=== PATIENT | male | born 1995 | race American Indian/Alaskan Native ===

== ENCOUNTER 2019-02-10 21:51 | Emergency (ER) | payer MEDICAID ==
--- NOTE | 2019-02-10 22:18 | EDM.PDOC ---
ED HPI GENERAL MEDICAL PROBLEM - General Chief Complaint: General Stated Complaint: RECTAL PAIN Time Seen by Provider: 02/10/19 22:07 Source of Information: Reports: Patient History Limitations: Reports: No Limitations - History of Present Illness INITIAL COMMENTS - FREE TEXT/NARRATIVE: Patient presents for evaluation of a lump in his left buttock present for several weeks now. This came on spontaneously and has persisted for almost 3 weeks. It was worse in the last couple of days and today while working, he began to feel something draining down his leg. Center of the area had burst open and leaked a clear fluid onto underwear and other clothing. Once it began to leak, his pain actually had improved but was not 0. He's not had any other similar lesions on the body. He also has concerns about some tiny white spots on the shaft of the penis but these are secondary compared to the pain in his left buttock. No fever or chills. No nausea or vomiting. No dysuria. Onset: Gradual Duration: Week(s): (3, worse in the last couple days however.) Location: Reports: Pelvis (Left buttock.) Severity: Mild Improves with: Reports: None Worsens with: Reports: Movement Associated Symptoms: Reports: No Other Symptoms - Related Data Allergies Allergy/AdvReac Type Severity Reaction Status Date / Time No Known Allergies Allergy Verified 02/10/19 22:12 Home Meds: Home Meds NK [No Known Home Meds] 02/10/19 [History] ED ROS GENERAL - Review of Systems Review Of Systems: Comprehensive ROS is negative, except as noted in HPI. ED EXAM, GENERAL - Physical Exam Exam: See Below Exam Limited By: No Limitations General Appearance: Mild Distress (Male) Exam: Other (Shaft of the penis shows numerous pinpoint white papules which are present normal sweat glands.) Rectal (Males) Exam: No: Perirectal Abscess Skin Exam: Other (The left buttock shows an approximately 4 cm diameter, indurated raised slightly reddened area with a central opening leaking serous fluid.) Course - Vital Signs Last Recorded V/S: Last Vital Signs Temp 36.8 C 02/10/19 22:55 Pulse 86 02/10/19 22:55 Resp 16 02/10/19 22:55 BP 147/99 H 02/10/19 22:55 Pulse Ox 95 02/10/19 22:55 - Orders/Labs/Meds Orders: Active Orders 24 hr Category Date Time Status CULTURE WOUND + SMEAR [RM] Stat Lab 02/10/19 23:00 Results Meds: Medications Discontinued Medications Generic Name Dose Route Start Last Admin Trade Name Deisy PRN Reason Stop Dose Admin Trimethoprim/Sulfamethoxazole 1 tab 02/10/19 23:00 02/10/19 23:09 Septra Ds PO 02/10/19 23:01 1 tab ONETIME ONE Administration - Re-Assessments/Exams Free Text/Narrative Re-Assessment/Exam: 02/11/19 01:56 With pressure around the central opening of the area, mostly serous fluid but a tiny amount of exudative material was expressed. The bulk of the lesion feels quite firm. After reviewing options to look at this tonight, I described puncturing the central core with a needle and see what material might come out. He agreed to that. The area was cleansed with iodine and allowed to dry. Following that, a sterile 18-gauge needle was used to penetrate the center portion of the abscess. Perhaps a quarter teaspoon of caseous material was expressed along with additional serous fluid area did minor bleeding. He felt better following a puncture. I recommend using warm water tub soaks for 30 minutes several times a day if he is able. He was given a single tablet of Septra DS in the department. Prescription was sent for 10 days of Septra DS. Culture of the expressed wound material was obtained and sent to lab. He should call after Friday, 16 November, to get culture results. He does not have a primary provider. If he feels worse in any way he should return here. Depending on how this does, he may need to be seen in outpatient surgery clinic. Reasons to return to emergency department reviewed. Departure - Departure Time of Disposition: 23:01 Disposition: Home, Self-Care 01 Condition: Good Clinical Impression: Abscess of buttock, left - Discharge Information *PRESCRIPTION DRUG MONITORING PROGRAM REVIEWED*: Not Applicable *COPY OF PRESCRIPTION DRUG MONITORING REPORT IN PATIENT JON: Not Applicable Instructions: Skin Abscess Referrals: PCP,None [Primary Care Provider] - Forms: ED Department Discharge Additional Instructions: Get in the bathtub at home and soak in very warm water for 30 minutes. If you can do that 2 or 3 times a day, it will help the painful area. Continue antibiotic until they are all gone. Culture results will take 3 or so days before they finalize. Contact the emergency department for culture results after Friday, 15 February. Depending on how you feel over the next week to 10 days, you may need follow-up in the clinic with one of the surgeons. If things are worsening, return to emergency department but if she don't feel like they' re getting smaller, contact your primary care or the local clinic surgery department for an appointment. Sepsis Event Note - Focused Exam Vital Signs: Vital Signs Temp Pulse Resp BP Pulse Ox 02/10/19 22:55 36.8 C 86 16 147/99 H 95 02/10/19 22:07 36.8 C 86 16 147/99 H 95 Date Exam was Performed: 02/11/19 Time Exam was Performed: 01:51 - My Orders Last 24 Hours: My Active Orders 02/10/19 23:00 CULTURE WOUND + SMEAR [RM] Stat - Assessment/Plan Last 24 Hours: My Active Orders 02/10/19 23:00 CULTURE WOUND + SMEAR [RM] Stat
[2019-02-10] MEDS ORDERED: Sulfamethoxazole/Trimethoprim 800-160 MG Tab PO ONE (23:00)
== END 2019-02-10 23:40 | disposition home or self-care (01) ==
LOC: JP.ED 21:51
DX: L02.31 Cutaneous abscess of buttock (principal)
CPT/HCPCS: 87070; 87077; 87186; 87205; 99283; A9270

== ENCOUNTER 2019-04-01 06:03 | Emergency (ER) | payer MEDICAID ==
[2019-04-01] MEDS ORDERED: Sodium Chloride 0.9% 10 ML Syringe FLUSH PRN (06:27)
[2019-04-01] MEDS ORDERED: Ondansetron 4 MG/2 ML SDV IVPUSH ONE (06:29)
[2019-04-01] MEDS ORDERED: Lactated Ringers 1,000 ML IV SCH (06:30)
--- NOTE | 2019-04-01 06:31 | EDM.PDOC ---
<OfficerIsrrael - Last Filed: 04/01/19 06:29> ED HPI GENERAL MEDICAL PROBLEM - General Chief Complaint: Abdominal Pain Stated Complaint: SHARP PAIN IN LOWER CHEST AND ABD Time Seen by Provider: 04/01/19 06:24 Source of Information: Reports: Patient, RN Notes Reviewed History Limitations: Reports: No Limitations - History of Present Illness INITIAL COMMENTS - FREE TEXT/NARRATIVE: 24-year-old gentleman presents emergency department a complaint of nausea vomiting abdominal pain, states he has had this in the past but not quite this severe he does admit to using cannabis no fevers no shortness of breath or chest pain - Related Data Allergies Allergy/AdvReac Type Severity Reaction Status Date / Time No Known Allergies Allergy Verified 02/10/19 22:12 Home Meds: Home Meds NK [No Known Home Meds] 02/10/19 [History] Past Medical History - Past Health History Medical/Surgical History: Denies Medical/Surgical History Social & Family History - Tobacco Use Smoking Status *Q: Current Every Day Smoker - Caffeine Use Caffeine Use: Reports: Soda ED ROS GENERAL - Review of Systems Review Of Systems: See Below Constitutional: Denies: Fever, Chills HEENT: Reports: No Symptoms Respiratory: Reports: No Symptoms Cardiovascular: Reports: No Symptoms GI/Abdominal: Reports: Abdominal Pain, Nausea, Vomiting : Reports: No Symptoms Musculoskeletal: Reports: No Symptoms Neurological: Reports: No Symptoms ED EXAM, GI/ABD - Physical Exam Exam: See Below Exam Limited By: No Limitations General Appearance: Alert, WD/WN, No Apparent Distress Head: Atraumatic, Normocephalic Neck: Normal Inspection, Supple, Non-Tender, Full Range of Motion Respiratory/Chest: No Respiratory Distress, Lungs Clear, Normal Breath Sounds, No Accessory Muscle Use, Chest Non-Tender Cardiovascular: Regular Rate, Rhythm, No Murmur GI/Abdominal Exam: Soft, Tender (Tender epigastric region) Back Exam: Normal Inspection, Full Range of Motion. No: CVA Tenderness (R), CVA Tenderness (L) Course - Vital Signs Last Recorded V/S: Last Vital Signs Temp 96.8 F 04/01/19 08:50 Pulse 53 L 04/01/19 08:50 Resp 16 04/01/19 08:50 BP 146/83 H 04/01/19 08:50 Pulse Ox 100 04/01/19 08:50 - Orders/Labs/Meds Orders: Active Orders 24 hr Category Date Time Status Peripheral IV Care [RC] . DIRECTED Care 04/01/19 06:28 Active Peripheral IV Insertion Adult [OM.PC] Urgent Oth 04/01/19 06:27 Ordered Labs: Laboratory Tests 04/01/19 04/01/19 04/01/19 Range/Units 06:42 06:42 06:42 WBC 15.6 H (4.5-11.0) K/uL RBC 5.30 (4.30-5.90) M/uL Hgb 15.4 H (12.0-15.0) g/dL Hct 46.3 (40.0-54.0) % MCV 87 (80-98) fL MCH 29 (27-31) pg MCHC 33 (32-36) % Plt Count 435 H (150-400) K/uL Neut % (Auto) 73 H (36-66) % Lymph % (Auto) 22 L (24-44) % [place] % (Auto) 5 (2-6) % Eos % (Auto) 0 L (2-4) % Baso % (Auto) 0 (0-1) % Sodium 143 (140-148) mmol/L Potassium 3.7 (3.6-5.2) mmol/L Chloride 106 (100-108) mmol/L Carbon Dioxide 24 (21-32) mmol/L Anion Gap 13.5 (5.0-14.0) mmol/L BUN 11 (7-18) mg/dL Creatinine 0.9 (0.8-1.3) mg/dL Est Cr Clr Drug Dosing 128.74 mL/min Estimated GFR (MDRD) > 60 (>60) Glucose 161 H (74-106) mg/dL Lactic Acid 3.1 H (0.4-2.0) mmol/L Calcium 8.5 (8.5-10.1) mg/dL Total Bilirubin 0.3 (0.2-1.0) mg/dL AST 16 (15-37) U/L ALT 37 (12-78) U/L Alkaline Phosphatase 62 (46-116) U/L Total Protein 7.5 (6.4-8.2) g/dL Albumin 4.3 (3.4-5.0) g/dL Globulin 3.2 (2.3-3.5) g/dL Albumin/Globulin Ratio 1.3 (1.2-2.2) Lipase 102 (73-393) U/L Urine Opiates Screen (NEGATIVE) Ur Oxycodone Screen (NEGATIVE) Urine Methadone Screen (NEGATIVE) Ur Propoxyphene Screen (NEGATIVE) Ur Barbiturates Screen (NEGATIVE) Ur Tricyclics Screen (NEGATIVE) Ur Phencyclidine Scrn (NEGATIVE) Ur Amphetamine Screen (NEGATIVE) U Methamphetamines Scrn (NEGATIVE) Urine MDMA Screen (NEGATIVE) U Benzodiazepines Scrn (NEGATIVE) U Cocaine Metab Screen (NEGATIVE) U Marijuana (THC) Screen (NEGATIVE) 04/01/19 Range/Units 08:55 WBC (4.5-11.0) K/uL RBC (4.30-5.90) M/uL Hgb (12.0-15.0) g/dL Hct (40.0-54.0) % MCV (80-98) fL MCH (27-31) pg MCHC (32-36) % Plt Count (150-400) K/uL Neut % (Auto) (36-66) % Lymph % (Auto) (24-44) % [place] % (Auto) (2-6) % Eos % (Auto) (2-4) % Baso % (Auto) (0-1) % Sodium (140-148) mmol/L Potassium (3.6-5.2) mmol/L Chloride (100-108) mmol/L Carbon Dioxide (21-32) mmol/L Anion Gap (5.0-14.0) mmol/L BUN (7-18) mg/dL Creatinine (0.8-1.3) mg/dL Est Cr Clr Drug Dosing mL/min Estimated GFR (MDRD) (>60) Glucose (74-106) mg/dL Lactic Acid (0.4-2.0) mmol/L Calcium (8.5-10.1) mg/dL Total Bilirubin (0.2-1.0) mg/dL AST (15-37) U/L ALT (12-78) U/L Alkaline Phosphatase (46-116) U/L Total Protein (6.4-8.2) g/dL Albumin (3.4-5.0) g/dL Globulin (2.3-3.5) g/dL Albumin/Globulin Ratio (1.2-2.2) Lipase (73-393) U/L Urine Opiates Screen Negative (NEGATIVE) Ur Oxycodone Screen Negative (NEGATIVE) Urine Methadone Screen Negative (NEGATIVE) Ur Propoxyphene Screen Negative (NEGATIVE) Ur Barbiturates Screen Negative (NEGATIVE) Ur Tricyclics Screen Negative (NEGATIVE) Ur Phencyclidine Scrn Negative (NEGATIVE) Ur Amphetamine Screen Negative (NEGATIVE) U Methamphetamines Scrn Negative (NEGATIVE) Urine MDMA Screen Negative (NEGATIVE) U Benzodiazepines Scrn Presumptive positive H (NEGATIVE) U Cocaine Metab Screen Negative (NEGATIVE) U Marijuana (THC) Screen Presumptive positive H (NEGATIVE) Meds: Medications Discontinued Medications Generic Name Dose Route Start Last Admin Trade Name Freq PRN Reason Stop Dose Admin Haloperidol Lactate 5 mg 04/01/19 07:31 04/01/19 07:41 Haldol IVPUSH 04/01/19 07:32 5 mg ONETIME ONE Administration Lactated Ringer's 1,000 mls @ 125 mls/hr 04/01/19 06:30 04/01/19 06:42 Ringers, Lactated IV 125 mls/hr ASDIRECTED DELLA Administration Sodium Chloride 1,000 mls @ 1,000 mls/hr 04/01/19 07:45 04/01/19 08:35 Normal Saline IV 1,000 mls/hr ASDIRECTED DELLA Administration Lorazepam 1 mg 04/01/19 06:52 04/01/19 06:59 Ativan IVPUSH 04/01/19 06:53 1 mg ONETIME ONE Administration Lorazepam 1 mg 04/01/19 07:31 04/01/19 07:44 Ativan IVPUSH 04/01/19 07:32 1 mg ONETIME ONE Administration Ondansetron HCl 4 mg 04/01/19 06:29 04/01/19 06:43 Zofran IVPUSH 04/01/19 06:30 4 mg ONETIME ONE Administration Sodium Chloride 10 ml 04/01/19 06:27 Saline Flush FLUSH ASDIRECTED PRN Keep Vein Open Departure - Departure Disposition: Home, Self-Care 01 Clinical Impression: Cannabis hyperemesis syndrome concurrent with and due to cannabis abuse - Discharge Information Instructions: Cannabinoid Hyperemesis Syndrome Referrals: PCP,None [Primary Care Provider] - Forms: ED Department Discharge Care Plan Goals: Try to decrease marijuana use, stopping completely would be your best option. If symptoms recur try a hot shower, and return to the clinic or ER if symptoms are persistent, you develop a fever or increased abdominal pain. Sepsis Event Note - Evaluation Sepsis Screening Result: No Definite Risk - Focused Exam Vital Signs: Vital Signs Temp Pulse Resp BP Pulse Ox 04/01/19 08:50 96.8 F 53 L 16 146/83 H 100 04/01/19 06:23 95.4 F 67 16 153/97 H 97 Date Exam was Performed: 04/01/19 Time Exam was Performed: 06:29 <Monico Bloom - Last Filed: 04/01/19 10:45> ED HPI GENERAL MEDICAL PROBLEM Upper Epigastric Pain Score (Numeric/FACES): 10 Course - Re-Assessments/Exams Free Text/Narrative Re-Assessment/Exam: 04/01/19 07:46 Patient initially evaluated and treated with by Dr. Justicer for persistent emesis. IV Ativan temporarily helped but he is actively retching again. He admits this is been a recurring problem and last occurred a week ago, however it is "never been this bad". He has no history of abdominal surgeries. Labs returned reassuring, white count was mildly elevated but electrolytes amylase and lipase were normal. An additional milligram of Ativan was given along with 5 mg of IV Haldol, and normal saline was bolused. Patient admits to frequent use of marijuana. 04/01/19 08:33 Shortly after the second dose of Ativan and Haldol the patient fell asleep and slept soundly for an hour. 04/01/19 09:06 Patient did not receive developed any nausea or vomiting, stayed fairly sedated with the medications. Was able to go to the bathroom and provide a urine which was positive for marijuana. He will be discharged to the care of his father, strongly encouraged to stop marijuana usage and try a hot shower if symptoms recur. Departure - Departure Time of Disposition: 09:31 Sepsis Event Note - Focused Exam Date Exam was Performed: 04/01/19 Time Exam was Performed: 10:45
[2019-04-01] MEDS ORDERED: LORazepam 2 MG/ML SDV IVPUSH ONE ×2 (06:52→07:31)
[2019-04-01] MEDS ORDERED: Haloperidol Lactate 5 MG/ML SDV IVPUSH ONE (07:31)
[2019-04-01] MEDS ORDERED: Sodium Chloride 0.9% 1,000 ML IV SCH (07:45)
== END 2019-04-01 09:31 | disposition home or self-care (01) ==
LOC: JP.ED 06:03
DX: F12.188 Cannabis abuse with other cannabis-induced disorder (principal); F17.200 Nicotine dependence, unspecified, uncomplicated
CPT/HCPCS: 36415; 80053; 80305; 83605; 83690; 85025; 96361; 96374; 96375; 96376; 99284; J1630; J2060; J2405; J7030; J7120

== ENCOUNTER 2019-10-14 04:35 | Emergency (ER) | payer MEDICAID ==
[2019-10-14] MEDS ORDERED: Alum Hydrox/Mag Hydrox/Simeth 15 ML, Lidocaine 2% 15 ML PO ONE ×2 (05:08)
--- NOTE | 2019-10-14 05:11 | EDM.PDOC ---
ED HPI GENERAL MEDICAL PROBLEM - General Chief Complaint: Gastrointestinal Problem Stated Complaint: ABD PAIN Time Seen by Provider: 10/14/19 05:01 Source of Information: Reports: Patient, Old Records, RN Notes Reviewed History Limitations: Reports: No Limitations - History of Present Illness INITIAL COMMENTS - FREE TEXT/NARRATIVE: 24-year-old gentleman presents emergency department today with complaint of abdominal pain, he states the pain started last night about 11:00 has progressed it is mainly in the epigastric region he has had nausea and vomiting. Deficit have a history of hyperemesis cannabis syndrome but he admits to eating a large meal last night states he has not used cannabis for 24 hours - Related Data Allergies Allergy/AdvReac Type Severity Reaction Status Date / Time No Known Allergies Allergy Verified 10/14/19 04:52 Home Meds: Home Meds NK [No Known Home Meds] 02/10/19 [History] Past Medical History Psychiatric History: Reports: Addiction, Depression - Past Surgical History Head Surgeries/Procedures: Reports: None Dermatological Surgical History: Reports: None Social & Family History - Family History Family Medical History: Noncontributory - Tobacco Use Smoking Status *Q: Never Smoker Second Hand Smoke Exposure: No - Caffeine Use Caffeine Use: Reports: Soda - Recreational Drug Use Recreational Drug Use: Yes Drug Use in Last 12 Months: Yes Recreational Drug Type: Reports: Marijuana/Hashish Recreational Drug Use Frequency: Daily ED ROS GENERAL - Review of Systems Review Of Systems: See Below Constitutional: Reports: No Symptoms HEENT: Reports: No Symptoms Respiratory: Reports: No Symptoms Cardiovascular: Reports: No Symptoms GI/Abdominal: Reports: Abdominal Pain, Flatus, Nausea, Vomiting. Denies: Constipation, Diarrhea : Reports: No Symptoms ED EXAM, GI/ABD - Physical Exam Exam: See Below Exam Limited By: No Limitations General Appearance: Alert, WD/WN, No Apparent Distress Respiratory/Chest: No Respiratory Distress, Lungs Clear, Normal Breath Sounds, No Accessory Muscle Use, Chest Non-Tender Cardiovascular: Regular Rate, Rhythm, No Murmur GI/Abdominal Exam: Normal Bowel Sounds, Soft, No Organomegaly, No Distention, No Mass, Tender (Epigastric region) Course - Vital Signs Last Recorded V/S: Last Vital Signs Temp 96 F L 10/14/19 04:49 Pulse 50 L 10/14/19 04:49 Resp 16 10/14/19 04:49 BP 178/101 H 10/14/19 04:49 Pulse Ox 96 10/14/19 04:49 - Orders/Labs/Meds Orders: Active Orders 24 hr Category Date Time Status ED GI Medications Reflex [OM.PC] Click to Edit Oth 10/14/19 05:06 Ordered Labs: Laboratory Tests 10/14/19 10/14/19 10/14/19 Range/Units 05:26 05:26 05:30 WBC 14.8 H (4.5-11.0) K/uL RBC 5.24 (4.30-5.90) M/uL Hgb 15.5 H (12.0-15.0) g/dL Hct 46.0 (40.0-54.0) % MCV 88 (80-98) fL MCH 30 (27-31) pg MCHC 34 (32-36) % Plt Count 404 H (150-400) K/uL Neut % (Auto) 83 H (36-66) % Lymph % (Auto) 12 L (24-44) % [place] % (Auto) 4 (2-6) % Eos % (Auto) 1 L (2-4) % Baso % (Auto) 0 (0-1) % Sodium (140-148) mmol/L Potassium (3.6-5.2) mmol/L Chloride (100-108) mmol/L Carbon Dioxide (21-32) mmol/L Anion Gap (5.0-14.0) mmol/L BUN (7-18) mg/dL Creatinine (0.8-1.3) mg/dL Est Cr Clr Drug Dosing mL/min Estimated GFR (MDRD) (>60) Glucose (74-106) mg/dL Lactic Acid (0.4-2.0) mmol/L Calcium (8.5-10.1) mg/dL Total Bilirubin (0.2-1.0) mg/dL AST (15-37) U/L ALT (12-78) U/L Alkaline Phosphatase (46-116) U/L Total Protein (6.4-8.2) g/dL Albumin (3.4-5.0) g/dL Globulin (2.3-3.5) g/dL Albumin/Globulin Ratio (1.2-2.2) Urine Color Yellow (YELLOW) Urine Appearance Slightly cloudy A (CLEAR) Urine pH 6.0 (5.0-8.0) Ur Specific [place] >= 1.030 (1.008-1.030) Urine Protein Negative (NEGATIVE) mg/dL Urine Glucose (UA) Negative (NEGATIVE) mg/dL Urine Ketones Negative (NEGATIVE) mg/dL Urine Occult Blood Trace-intact H (NEGATIVE) Urine Nitrite Negative (NEGATIVE) Urine Bilirubin Negative (NEGATIVE) Urine Urobilinogen 1.0 (0.2-1.0) EU/dL Ur Leukocyte Esterase Negative (NEGATIVE) Urine RBC 0-5 (0-5) Urine WBC 0-5 (0-5) Ur Epithelial Cells Rare Amorphous Sediment Not seen Urine Bacteria Not seen Urine Mucus Moderate Urine Other Urine Opiates Screen Negative (NEGATIVE) Ur Oxycodone Screen Negative (NEGATIVE) Urine Methadone Screen Negative (NEGATIVE) Ur Propoxyphene Screen Negative (NEGATIVE) Ur Barbiturates Screen Negative (NEGATIVE) Ur Tricyclics Screen Negative (NEGATIVE) Ur Phencyclidine Scrn Negative (NEGATIVE) Ur Amphetamine Screen Negative (NEGATIVE) U Methamphetamines Scrn Negative (NEGATIVE) Urine MDMA Screen Negative (NEGATIVE) U Benzodiazepines Scrn Negative (NEGATIVE) U Cocaine Metab Screen Negative (NEGATIVE) U Marijuana (THC) Screen Presumptive positive H (NEGATIVE) 10/14/19 10/14/19 Range/Units 05:30 05:30 WBC (4.5-11.0) K/uL RBC (4.30-5.90) M/uL Hgb (12.0-15.0) g/dL Hct (40.0-54.0) % MCV (80-98) fL MCH (27-31) pg MCHC (32-36) % Plt Count (150-400) K/uL Neut % (Auto) (36-66) % Lymph % (Auto) (24-44) % [place] % (Auto) (2-6) % Eos % (Auto) (2-4) % Baso % (Auto) (0-1) % Sodium 141 (140-148) mmol/L Potassium 4.5 (3.6-5.2) mmol/L Chloride 105 (100-108) mmol/L Carbon Dioxide 31 (21-32) mmol/L Anion Gap 4.6 L (5.0-14.0) mmol/L BUN 8 (7-18) mg/dL Creatinine 0.9 (0.8-1.3) mg/dL Est Cr Clr Drug Dosing 128.74 mL/min Estimated GFR (MDRD) > 60 (>60) Glucose 129 H (74-106) mg/dL Lactic Acid 1.4 (0.4-2.0) mmol/L Calcium 8.9 (8.5-10.1) mg/dL Total Bilirubin 0.4 (0.2-1.0) mg/dL AST 21 (15-37) U/L ALT 29 (12-78) U/L Alkaline Phosphatase 61 (46-116) U/L Total Protein 7.7 (6.4-8.2) g/dL Albumin 4.3 (3.4-5.0) g/dL Globulin 3.4 (2.3-3.5) g/dL Albumin/Globulin Ratio 1.3 (1.2-2.2) Urine Color (YELLOW) Urine Appearance (CLEAR) Urine pH (5.0-8.0) Ur Specific [place] (1.008-1.030) Urine Protein (NEGATIVE) mg/dL Urine Glucose (UA) (NEGATIVE) mg/dL Urine Ketones (NEGATIVE) mg/dL Urine Occult Blood (NEGATIVE) Urine Nitrite (NEGATIVE) Urine Bilirubin (NEGATIVE) Urine Urobilinogen (0.2-1.0) EU/dL Ur Leukocyte Esterase (NEGATIVE) Urine RBC (0-5) Urine WBC (0-5) Ur Epithelial Cells Amorphous Sediment Urine Bacteria Urine Mucus Urine Other Urine Opiates Screen (NEGATIVE) Ur Oxycodone Screen (NEGATIVE) Urine Methadone Screen (NEGATIVE) Ur Propoxyphene Screen (NEGATIVE) Ur Barbiturates Screen (NEGATIVE) Ur Tricyclics Screen (NEGATIVE) Ur Phencyclidine Scrn (NEGATIVE) Ur Amphetamine Screen (NEGATIVE) U Methamphetamines Scrn (NEGATIVE) Urine MDMA Screen (NEGATIVE) U Benzodiazepines Scrn (NEGATIVE) U Cocaine Metab Screen (NEGATIVE) U Marijuana (THC) Screen (NEGATIVE) Meds: Medications Discontinued Medications Generic Name Dose Route Start Last Admin Trade Name Freq PRN Reason Stop Dose Admin Al Hydroxide/Mg Hydroxide 15 0 ml 10/14/19 05:08 10/14/19 05:17 ml/ Lidocaine HCl 15 ml PO 10/14/19 05:09 15 ml ONETIME ONE Administration Departure - Departure Time of Disposition: 06:12 Disposition: Home, Self-Care 01 Condition: Fair Clinical Impression: GERD (gastroesophageal reflux disease) Qualifiers: Esophagitis presence: esophagitis presence not specified Qualified Code(s): K21.9 - Gastro-esophageal reflux disease without esophagitis - Discharge Information Referrals: PCP,None [Primary Care Provider] - Forms: ED Department Discharge Additional Instructions: Try Zantac which is [id number] as needed please followup with your primary care provider in 3-5 days if not better, please call return to the emergency department with worsening of symptoms. Sepsis Event Note (ED) - Evaluation Sepsis Screening Result: No Definite Risk - Focused Exam Vital Signs: Vital Signs Temp Pulse Resp BP Pulse Ox 10/14/19 04:49 96 F L 50 L 16 178/101 H 96 10/14/19 04:48 96 F L 50 L 16 178/101 H 96 - My Orders Last 24 Hours: My Active Orders 10/14/19 05:06 ED GI Medications Reflex [OM.PC] Click to Edit - Assessment/Plan Last 24 Hours: My Active Orders 10/14/19 05:06 ED GI Medications Reflex [OM.PC] Click to Edit Plan: Assessment Acuity = acute Site and laterality = GERD Etiology = unknown Manifestations = none Location of injury = Home Lab values = none Plan Good improvement with GI cocktail, follow-up primary care 3 to 5 days if not better This note was dictated using [employer] voice recognition software please call with any questions on syntax or grammar.
== END 2019-10-14 06:20 | disposition home or self-care (01) ==
LOC: JP.ED 04:35
DX: K21.9 Gastro-esophageal reflux disease without esophagitis (principal)
CPT/HCPCS: 36415; 80053; 80305; 81001; 83605; 85025; 99284; A9270

== ENCOUNTER 2020-04-03 00:37 | Emergency (ER) | payer MEDICAID ==
--- NOTE | 2020-04-03 00:56 | EDM.PDOC ---
ED HPI GENERAL MEDICAL PROBLEM - General Chief Complaint: Abdominal Pain Stated Complaint: ABD PAIN Time Seen by Provider: 04/03/20 00:56 Source of Information: Reports: Patient History Limitations: Reports: No Limitations - History of Present Illness INITIAL COMMENTS - FREE TEXT/NARRATIVE: Rishi is a 25-year-old male presenting to the ED for evaluation of acute onset of severe epigastric pain, nausea and vomiting that started around 2200 hrs. this evening. Patient reportedly has presented with similar symptoms in the past and has been diagnosed with cannabinoid hyperemesis syndrome. The patient can test that diagnosis stating that the physician who diagnosed him is aquatic, however, the patient does admit to smoking marijuana daily. We did not get into details about how often he takes hot showers. Patient denies any fever or chills. He has had 4-5 emesis today. He also reports that he has had a couple episodes of diarrhea today. He is complaining of severe burning pain in the epigastric region boring through to his back. epigastric/ LUQ Pain Score (Numeric/FACES): 5 - Related Data Allergies Allergy/AdvReac Type Severity Reaction Status Date / Time No Known Allergies Allergy Verified 04/03/20 00:48 Home Meds: Home Meds Ondansetron [Zofran Odt] 8 mg PO Q6H PRN #10 tab.rapdis 04/03/20 [Rx] Past Medical History - Past Health History Medical/Surgical History: Denies Medical/Surgical History Psychiatric History: Reports: Addiction, Depression - Past Surgical History Head Surgeries/Procedures: Reports: None Dermatological Surgical History: Reports: None Social & Family History - Family History Family Medical History: No Pertinent Family History - Tobacco Use Tobacco Use Status *Q: Never Tobacco User - Caffeine Use Caffeine Use: Reports: Soda - Recreational Drug Use Recreational Drug Use: Yes Drug Use in Last 12 Months: Yes Recreational Drug Type: Reports: Marijuana/Hashish Recreational Drug Use Frequency: Daily ED ROS GENERAL - Review of Systems Review Of Systems: See Below Constitutional: Reports: Decreased Appetite HEENT: Reports: No Symptoms Respiratory: Reports: No Symptoms Cardiovascular: Reports: No Symptoms Endocrine: Reports: No Symptoms GI/Abdominal: Reports: Abdominal Pain (Epigastric pain), Diarrhea, Nausea, Vomiting. Denies: Black Stool, Bloody Stool, Hematemesis, Hematochezia, Melena : Reports: No Symptoms Musculoskeletal: Reports: No Symptoms Skin: Reports: No Symptoms Neurological: Reports: No Symptoms Psychiatric: Reports: Anxiety Hematologic/Lymphatic: Reports: No Symptoms Immunologic: Reports: No Symptoms ED EXAM, GI/ABD - Physical Exam Exam: See Below Exam Limited By: No Limitations General Appearance: Alert, Moderate Distress Eyes: Bilateral: EOMI Throat/Mouth: Normal Inspection, Normal Lips, Normal Oropharynx, Normal Voice Head: Atraumatic, Normocephalic Neck: Normal Inspection, Supple Respiratory/Chest: No Respiratory Distress, Lungs Clear, Normal Breath Sounds Cardiovascular: Normal Peripheral Pulses, Regular Rate, Rhythm, No Murmur, Tachycardia GI/Abdominal Exam: Tender (Mild epigastric tenderness to palpation), Abnormal Bowel Sounds (Increased bowel sounds). No: Guarding, Rigid, Rebound Back Exam: Normal Inspection, Full Range of Motion Extremities: Normal Inspection, Normal Range of Motion Neurological: Alert, Oriented, Normal Cognition, No Motor/Sensory Deficits Psychiatric: Normal Affect, Anxious Skin Exam: Warm, Dry Lymphatic: No Adenopathy Course - Vital Signs Last Recorded V/S: Last Vital Signs Temp 36.4 C 04/03/20 00:48 Pulse 52 L 04/03/20 00:48 Resp 18 04/03/20 00:48 BP 176/94 H 04/03/20 00:48 Pulse Ox 97 04/03/20 00:48 - Orders/Labs/Meds Orders: Active Orders 24 hr Category Date Time Status COMPREHENSIVE METABOLIC PN,CMP [CHEM] Stat Lab 04/03/20 01:10 Received LIPASE [CHEM] Stat Lab 04/03/20 01:10 Received Sodium Chloride 0.9% [Normal Saline] 1,000 ml Med 04/03/20 01:05 Active IV .BOLUS Sodium Chloride 0.9% [Saline Flush] Med 04/03/20 01:05 Active 10 ml FLUSH ASDIRECTED PRN Saline Lock Insert [OM.PC] Routine Oth 04/03/20 01:05 Ordered Medication Orders Sodium Chloride (Normal Saline) 1,000 mls @ 999 mls/hr IV .BOLUS ONE Stop: 04/03/20 02:05 Last Admin: 04/03/20 01:14 Dose: 999 mls/hr Documented by: KORI Sodium Chloride (Saline Flush) 10 ml FLUSH ASDIRECTED PRN PRN Reason: Keep Vein Open Last Admin: 04/03/20 01:15 Dose: 10 ml Documented by: KORI Labs: Laboratory Tests 04/03/20 Range/Units 01:10 WBC 13.2 H (4.5-11.0) K/uL RBC 5.09 (4.30-5.90) M/uL Hgb 15.1 H (12.0-15.0) g/dL Hct 45.1 (40.0-54.0) % MCV 89 (80-98) fL MCH 30 (27-31) pg MCHC 34 (32-36) % Plt Count 375 (150-400) K/uL Neut % (Auto) 58 (36-66) % Lymph % (Auto) 33 (24-44) % [place] % (Auto) 8 H (2-6) % Eos % (Auto) 1 L (2-4) % Baso % (Auto) 0 (0-1) % Meds: Medications Generic Name Dose Route Start Last Admin Trade Name Freq PRN Reason Stop Dose Admin Sodium Chloride 1,000 mls @ 999 mls/hr 04/03/20 01:05 04/03/20 01:14 Normal Saline IV 04/03/20 02:05 999 mls/hr .BOLUS ONE Administration Sodium Chloride 10 ml 04/03/20 01:05 04/03/20 01:15 Saline Flush FLUSH 10 ml ASDIRECTED PRN Administration Keep Vein Open Discontinued Medications Generic Name Dose Route Start Last Admin Trade Name Freq PRN Reason Stop Dose Admin Ondansetron HCl 8 mg 04/03/20 01:09 04/03/20 01:18 Zofran IVPUSH 04/03/20 01:10 8 mg ONETIME ONE Administration - Re-Assessments/Exams Free Text/Narrative Re-Assessment/Exam: 04/03/20 02:08 labs reviewed and show a mild leukocytosis but otherwise his comprehensive metabolic panel is unremarkable. The patient received a liter of normal saline IV as well as ondansetron 8 mg IV. He is feeling much better at this time and suitable for discharge home. The patient is in denial that the cannabis is the cause of his repeated episodes so I did not belabor the point but it is likely the cause of his recurring episodes. At this time he is not ready to commit to cessation of his marijuana use daily. Indications return to the ED were discussed and all questions were answered prior to discharge. Departure - Departure Time of Disposition: 02:10 Disposition: Home, Self-Care 01 Condition: Good Clinical Impression: Cyclic vomiting syndrome, Epigastric abdominal pain Diarrhea Qualifiers: Diarrhea type: unspecified type Qualified Code(s): R19.7 - Diarrhea, unspecified - Discharge Information *PRESCRIPTION DRUG MONITORING PROGRAM REVIEWED*: Not Applicable *COPY OF PRESCRIPTION DRUG MONITORING REPORT IN PATIENT JON: Not Applicable Instructions: Nausea and Vomiting, Adult, [id number], Abdominal Pain, Adult, [id number], Diarrhea, Adult, [id number] Referrals: PCP,None [Primary Care Provider] - Forms: ED Department Discharge Care Plan Goals: I encourage you to take frequent small amounts of fluids to prevent dehydration especially given the nausea, vomiting, and diarrhea. I will prescribe ondansetron 8 mg which you may take every 8 hours as needed for nausea. Prescription has been printed which you can fill at the pharmacy when they open this morning. Sepsis Event Note (ED) - Evaluation Sepsis Screening Result: No Definite Risk - Focused Exam Vital Signs: Vital Signs Temp Pulse Resp BP Pulse Ox 04/03/20 00:48 36.4 C 52 L 18 176/94 H 97 - Problem List & Annotations (1) Cyclic vomiting syndrome Status: Acute Priority: High Current Visit: Yes (2) Diarrhea SNOMED Code(s): 91430086 Code(s): R19.7 - DIARRHEA, UNSPECIFIED Status: Acute Priority: High Current Visit: Yes Qualifiers: Diarrhea type: unspecified type Qualified Code(s): R19.7 - Diarrhea, unspecified (3) Epigastric abdominal pain SNOMED Code(s): 31736659 Code(s): R10.13 - EPIGASTRIC PAIN Status: Acute Priority: High Current Visit: Yes - Problem List Review Problem List Initiated/Reviewed/Updated: Yes - My Orders Last 24 Hours: My Active Orders 04/03/20 01:05 Sodium Chloride 0.9% [Normal Saline] 1,000 ml IV .BOLUS Sodium Chloride 0.9% [Saline Flush] 10 ml FLUSH ASDIRECTED PRN Saline Lock Insert [OM.PC] Routine 04/03/20 01:10 COMPREHENSIVE METABOLIC PN,CMP [CHEM] Stat LIPASE [CHEM] Stat - Assessment/Plan Last 24 Hours: My Active Orders 04/03/20 01:05 Sodium Chloride 0.9% [Normal Saline] 1,000 ml IV .BOLUS Sodium Chloride 0.9% [Saline Flush] 10 ml FLUSH ASDIRECTED PRN Saline Lock Insert [OM.PC] Routine 04/03/20 01:10 COMPREHENSIVE METABOLIC PN,CMP [CHEM] Stat LIPASE [CHEM] Stat
[2020-04-03] MEDS ORDERED: Sodium Chloride 0.9% 1,000 ML IV ONE (01:05)
[2020-04-03] MEDS ORDERED: Sodium Chloride 0.9% 10 ML Syringe FLUSH PRN (01:05)
[2020-04-03] MEDS ORDERED: Ondansetron 4 MG/2 ML SDV IVPUSH ONE (01:09)
== END 2020-04-03 02:38 | disposition home or self-care (01) ==
LOC: JP.ED 00:37
DX: R10.13 Epigastric pain (principal); R11.15 Cyclical vomiting syndrome unrelated to migraine; R19.7 Diarrhea, unspecified
CPT/HCPCS: 36415; 80053; 83690; 85025; 96374; 99284; 99284-25; J2405; J7030